=== PATIENT | female | born 1960 ===

== ENCOUNTER 2021-05-29 06:22 | Day surgery (SDC) | payer OTHER ==
[~2021-05-29 06:22] MED LIST: COZAAR50 MG PO; TENORMIN100 M1 PO
[2021-05-29] MEDS ORDERED: CIPRO500 MG PO (10:36)
== END 2021-05-29 15:25 | disposition home or self-care (01) ==
LOC: CIR.AMB 06:22
PROVIDERS: ATTEND Obstetrics & Gynecology
DX: N72 Inflammatory disease of cervix uteri (principal); I10 Essential (primary) hypertension; G47.33 Obstructive sleep apnea (adult) (pediatric); E66.01 Morbid (severe) obesity due to excess calories; Z20.822 Contact with and (suspected) exposure to COVID-19